=== PATIENT | male | born 1950 | race American Indian/Alaskan Native ===

== ENCOUNTER 2017-10-23 11:04 | Outpatient (CLI) | payer MEDICARE, OTHER ==
--- NOTE | 2017-10-23 11:34 | XRay Report ---
ROUTINE CHEST, TWO VIEWS: HISTORY: Pre-procedural cardiovascular evaluation. The trachea, heart, mediastinal contour, lung awan and bony thorax are unremarkable. IMPRESSION: Unremarkable chest x-ray.
== END 2017-10-23 11:05 | disposition home or self-care (01) ==
LOC: XRAY 11:04
PROVIDERS: ATTEND Internal Medicine
DX: Z01.810 Encounter for preprocedural cardiovascular examination (principal)
CPT/HCPCS: 71046

== ENCOUNTER 2019-01-06 08:20 | Outpatient (CLI) | payer MEDICARE, OTHER ==
[2019-01-06 10:22] LABS: Chol/HDL Ratio 1.98 %
== END 2019-01-06 08:21 | disposition home or self-care (01) ==
LOC: LAB 08:20
PROVIDERS: ATTEND Internal Medicine
DX: E11.319 Type 2 diabetes mellitus with unspecified diabetic retinopathy without macular edema (principal); E78.5 Hyperlipidemia, unspecified; I10 Essential (primary) hypertension; K21.9 Gastro-esophageal reflux disease without esophagitis
CPT/HCPCS: 36415; 80061; 83036; 87529; 87591; 87806

== ENCOUNTER 2019-05-24 08:31 | Outpatient (CLI) | payer MEDICARE, OTHER ==
[2019-05-24 10:06] LABS: Chol/HDL Ratio 1.94 %
== END 2019-05-24 08:32 | disposition home or self-care (01) ==
LOC: LAB 08:31
PROVIDERS: ATTEND Internal Medicine
DX: E11.9 Type 2 diabetes mellitus without complications (principal); E78.5 Hyperlipidemia, unspecified; I10 Essential (primary) hypertension; K21.9 Gastro-esophageal reflux disease without esophagitis
CPT/HCPCS: 36415; 80061; 83036

== ENCOUNTER 2022-01-26 12:46 | Emergency (ER) | payer MEDICARE, OTHER | END 2022-01-26 15:22 | disposition left against medical advice (07) | LOC: ED 12:46 | DX: M79.89 Other specified soft tissue disorders (principal); Z53.21 Procedure and treatment not carried out due to patient leaving prior to being seen by health care provider ==

== ENCOUNTER 2022-01-29 08:09 | Outpatient (CLI) | payer MEDICARE, OTHER ==
--- NOTE | 2022-01-29 09:18 | Vascular Lab Report ---
DUPLEX DOPPLER LOWER EXTREMITY VEINS, LEFT INDICATION / CLINICAL INFORMATION: EDEMA. TECHNIQUE: Duplex doppler imaging was performed through the veins of the left lower extremity using venous compr ession and other maneuvers. COMPARISON: None available. FINDINGS: LEFT COMMON FEMORAL VEIN: Negative. LEFT FEMORAL VEIN: Negative. LEFT POPLITEAL VEIN: Negative. LEFT CALF VEINS: Negative. ADDITIONAL FINDINGS: None. IMPRESSION: 1. No sonographic evidence for DVT in the left lower extremity. Signer Name: Manjit Golden MD Signed: 01/29/2022 9:13 AM Workstation Name: [id number]
== END 2022-01-29 08:10 | disposition home or self-care (01) ==
LOC: VAS 08:09
PROVIDERS: ATTEND Internal Medicine
DX: R60.9 Edema, unspecified (principal)

== ENCOUNTER 2022-05-07 10:52 | Outpatient (CLI) | payer MEDICARE, OTHER ==
[2022-05-07 13:15] LABS: Basophils % (Auto) 0.7 % (0.0-1.8); Eosinophils # (Auto) 0.1 K/mm3 (0.0-0.4); Eosinophils % (Auto) 2.1 % (0.0-4.3); Hematocrit 40.6 % (35.5-45.6); Hemoglobin 13.4 gm/dl (11.8-15.2); Lymphocytes # (Auto) 1.3 K/mm3 (1.2-5.4); Lymphocytes % (Auto) 28.2 % (13.4-35.0); Mean Corpuscular HGB Conc 33 % (32-34); Mean Corpuscular Volume 84 fl (84-94); Monocytes # (Auto) 0.6 K/mm3 (0.0-0.8); Monocytes % (Auto) 12.2 % (0.0-7.3); Platelet Count 176 K/mm3 (140-440); Red Blood Count 4.82 M/mm3 (3.65-5.03); Red Cell Distribution Width 19.5 % (13.2-15.2)
[2022-05-07 13:29] LABS: Creatinine,Urine 107.1 mg/dL (0.1-20.0)
[2022-05-07 13:30] LABS: Microalbumin/Creatinine Ratio 21.4 ug/mg
[2022-05-07 14:11] LABS: Alanine Aminotransferase 29 units/L (7-56); Albumin 4.5 g/dL (3.9-5); BUN/Creatinine Ratio 14; Blood Urea Nitrogen 13 mg/dL (9-20); Calcium 9.1 mg/dL (8.4-10.2); Chol/HDL Ratio 2.55 %; HDL Cholesterol 56 mg/dL (40-59); Hemolysis Index 14; Iron 58 ug/dL (49-181); LDL Cholesterol,Direct 71 mg/dL (50-130)
== END 2022-05-07 10:53 | disposition home or self-care (01) ==
LOC: LABHHL 10:52
PROVIDERS: ATTEND Internal Medicine
DX: E11.319 Type 2 diabetes mellitus with unspecified diabetic retinopathy without macular edema (principal); I10 Essential (primary) hypertension; E55.9 Vitamin D deficiency, unspecified; D64.9 Anemia, unspecified; R53.83 Other fatigue; Z00.00 Encounter for general adult medical examination without abnormal findings
CPT/HCPCS: 36415; 80053; 80061; 82043; 82306; 82728; 83036; 83540; 84443; 85025